=== PATIENT | male | born 1985 | race Caucasian/White ===

== ENCOUNTER 2022-02-22 18:54 | Emergency (ER) | payer OTHER, SELFPAY ==
[2022-02-22 18:55] VITALS: BP 140/83; PULSE 79; RESP 16; RESP 18; TEMP 36.2; O2SAT 99; BMI 40.0
--- NOTE | 2022-02-22 19:24 | RAD_ITS ---
STUDY: X-RAY - LEFT ANKLE REASON FOR EXAM: Male, 37 years old. PAIN THROUGHOUT JOINT S/P ROLLING INJURY TECHNIQUE: 3 view(s) of the ankle. COMPARISON: None. FINDINGS: Normal visualized distal tibia and fibula. Normal medial and lateral malleoli. Normal tibiotalar articulation and ankle mortise. Normal visualized talus and calcaneus. The visualized subtalar, talonavicular, calcaneocuboid and tarsal articulations are normal. Lateral soft tissue swelling. RAD/Ankle min 3 Views IMPRESSION: Soft tissue swelling without demonstrated fracture. Electronically Signed: Zbigniew Tran MD ([place]) at 20:02 EDT ,
--- NOTE | 2022-02-22 19:32 | EDS_ITS ---
HPI <Dr. Jc Mari DO - Last Filed: 02/22/22 20:09> History of Present Illness Chief Complaint: Lower Extremity Injury Informant: patient Narrative Narrative: 37-year-old male states that he was in the barn today when he stepped off the curb and rolled his left ankle. He notes a significant mount of swelling. He has been able to bear weight but gently. PFSH <Dr. Jc Mari DO - Last Filed: 02/22/22 20:09> PFSH Medical History Non-smoker Allergy/AdvReac Type Severity Reaction Status Date / Time No Known Allergies Allergy Verified 02/22/22 18:58 Social History current gender identity: male Smoking Status: Never smoker ROS <Dr. Jc Mari DO - Last Filed: 02/22/22 20:09> ROS ED Constitutional Constitutional ED: Denies chills or weight loss Eyes Eyes: Denies change in vision or diplopia ENT ENT ED: Denies ear pain, rhinorrhea or sore throat Cardiovascular Cardiovascular: Denies chest pain, orthopnea, palpitations or racing heartbeat Respiratory/Chest Respiratory/Chest: Denies cough, dyspnea or orthopnea Gastrointestinal Gastrointestinal: Denies abdominal pain, diarrhea, nausea or vomiting Genitourinary Genitourinary ED: Denies dysuria, hematuria or urinary frequency Musculoskeletal Musculoskeletal: Reports other Details: See history of present illness ; Denies arthralgias or myalgias Integumentary Denies abscess or rash Neurologic Neurologic: Denies headache(s) or weakness Psychiatric Psychiatric: Denies anxiety, depression, suicidal ideation or suicidal thoughts Endocrine Endocrinology: Denies polydipsia, polyphagia or polyuria Allergic/Immunologic Allergic/Immunologic ED: Denies mouth swelling, tongue swelling or urticaria EXAM <Dr. Jc Mari DO - Last Filed: 02/22/22 20:09> Physical Exam Const Vital Signs: 02/22/22 18:55 02/22/22 18:55 Temperature 97.1 F L 97.1 F L Temperature Source Temporal Temporal Pulse Rate 79 79 Respiratory Rate 18 16 Blood Pressure 140/83 H 140/83 H Blood Pressure Mean 102 102 Pulse Ox 99 99 Oxygen Delivery Method Room Air Room Air Positive well nourished and well developed General Appearance ED: well developed HEENT Reports normocephalic, head/scalp atraumatic and moist mucous membranes Eyes PERRL and EOMs intact bilaterally Neck no lymphadenopathy, supple and no JVD Resp normal respiratory effort and clear to auscultation bilaterally Cardio regular rate, regular rhythm and no murmurs GI normal to inspection, nondistended, normoactive bowel sounds and non-tender Palpation: soft Back/Spine no CVA tenderness and normal ROM Extremity Extremity Narrative: Patient has swelling over the medial and the lateral malleolus. The lateral malleolus is tender to palpation. There is no fifth metatarsal pain. No fibular head pain. There is no pain on palpation of the left foot. Achilles tendon palpates and functionally is intact. General Extremety ED: Negative for edema General Extremity: Negative for edema Neuro oriented x3 and CN's II-XII intact bilaterally Sensorium / Orientation: alert Motor Exam: strength 5/5 throughout Psych mental status grossly normal Mood & Affect: Negative for depressed or tearful Skin no rashes or lesions noted and no wounds <Dr. Elian Peña MD - Last Filed: 02/22/22 19:53> Physical Exam Const Vital Signs: 02/22/22 18:55 02/22/22 18:55 Temperature 97.1 F L 97.1 F L Temperature Source Temporal Temporal Pulse Rate 79 79 Respiratory Rate 18 16 Blood Pressure 140/83 H 140/83 H Blood Pressure Mean 102 102 Pulse Ox 99 99 Oxygen Delivery Method Room Air Room Air Skin Rashes: no rashes [facility] <Dr. Jc Mari DO - Last Filed: 02/22/22 20:09> [facility] Narrative Medical decision making narrative: My interpretation of the plain films of the left ankle is soft tissue swelling. No acute fracture. Tim wrap will be applied. Follow-up with primary care in 10 to 14 days if not improved return if worsening or concerns. Radiography Diagnostic Testing: Clinical Impression(s) from Imaging Studies Ankle X-Ray 02/22/22 19:24 IMPRESSION: Soft tissue swelling without demonstrated fracture. Electronically Signed: Zbigniew Tran MD ([place]) at 20:02 EDT Reading Location ID and State: [facility] / [place] , Service support , <Dr. Elian Peña MD - Last Filed: 02/22/22 19:53> MDM Radiography Diagnostic Testing: Clinical Impression(s) from Imaging Studies Ankle X-Ray 02/22/22 19:24 IMPRESSION: Soft tissue swelling without demonstrated fracture. Electronically Signed: Zbigniew Tran MD ([place]) at 20:02 EDT Reading Location ID and State: [facility] / [place] , Service support , Discharge Plan Triage Chief Complaint: Lower Extremity Injury ED Provider: Jc Mari Dx/Rx/DC Orders Clinical Impression: Left ankle sprain, Ankle pain, left Instructions: ED Ankle Sprain (Adult) Primary Care Provider: Lisa Coburn NP Referrals: Pardeep Lentz MD [STAFF PHYSICIAN] - 10-14 Days if not better Disposition Disposition: Home, Self Care
[2022-02-22 20:09] VITALS: RESP 18
== END 2022-02-22 20:17 | disposition home or self-care (01) ==
LOC: ED 19:51
PROVIDERS: Emergency Provider Emergency Medicine; PCP Nurse Practitioner Family; Visit Provider Emergency Medicine
DX: S93.402A Sprain of unspecified ligament of left ankle, initial encounter (principal); X50.1XXA Overexertion from prolonged static or awkward postures, initial encounter; Y92.71 Barn as the place of occurrence of the external cause
CPT/HCPCS: 73610; 99282

== ENCOUNTER → 2024-10-31 | Outpatient (CLI) | payer OTHER, SELFPAY ==
[2024-10-31 12:32] LABS: Anion Gap 11 (5-15); BUN 14 mg/dL (4-19); BUN/Creat Ratio 16.9 RATIO (10-20); Calcium,Total 9.5 mg/dL (7.6-11.0); Carbon Dioxide 24.7 mmol/L (21.0-32.0); Chloride 104 mmol/L (98-108); Cholesterol 198 mg/dL (<=200); Creatinine, Serum 0.84 mg/dL (0.70-1.20); EST Glomerular Filtration Rate 114 (>60); Glucose 88 mg/dL (70-99); High Density Lipoprotein 50 mg/dL; Low Density Lipoprotein Calc. 115 mg/dL; Potassium 4.7 mmol/L (3.3-5.1); Sodium Level 140 mmol/L (133-145); Triglycerides 164 mg/dL; Very Low Density Lipoprotein 33 mg/dL (5-40); cholesterol:hdl ratio screen 3.95
== END | disposition home or self-care (01) ==
LOC: MTLAB 09:45
PROVIDERS: PCP Family Medicine; Referring Provider Nurse Practitioner Family; Visit Provider Nurse Practitioner Family
DX: Z13.1 Encounter for screening for diabetes mellitus (principal); Z13.220 Encounter for screening for lipoid disorders
CPT/HCPCS: 36415; 80048; 80061